=== PATIENT | male | born 2000 | race Caucasian/White ===

== ENCOUNTER 2020-04-05 01:21 | Emergency (ER) | payer MEDICAID, OTHER ==
[2020-04-05] MEDS ORDERED: Ketorolac Tromethamine 30 MG/ML VIAL ONE (02:21)
[2020-04-05] MEDS ORDERED: Ondansetron PF 4 MG/2 ML Vial ONE (02:21)
[2020-04-05 02:23] LABS: #Eosinphils 0.2 thou/uL (0.0-0.7); #Lymphocytes 2.2 thou/uL (1.20-3.40); #Monocytes 0.7 thou/uL (0.11-0.59); %Basophils 0.4 % (0.0-1.0); %Lymphocytes 23.9 % (28.0-48.0); %Monocytes 7.5 % (0.0-4.0); %Neutrophils 66.3 % (31.0-61.0); Hemoglobin 16.9 g/dL (14.0-18.0); Mean Corpuscular HGB CONC 34.2 g/dL (32.0-36.0); Mean Corpuscular Hemoglobin 30.6 pg (25.0-35.0); Mean Corpuscular Volume 89.5 fL (78.0-98.0); Mean Platelet Volume 9.1 fL (7.4-10.4); Platelet Count 164 thou/uL (130-400); RBC Distribution Width 12.5 % (11.5-14.5); Red Blood Cell (RBC) Count 5.53 mill/uL (4.00-5.20)
[2020-04-05 02:36] LABS: ALT (SGPT) 12 U/L (8-55); AST (SGOT) 12 U/L (10-45); Alkaline Phosphatase 51 U/L (50-130); Anion Gap 12 mmol/L (10-20); BUN (Urea Nitrogen) 15 mg/dL (8.4-21.0); Bilirubin, Total Less than 0.2 mg/dL (0.2-1.2); Calc. Creatinine Clearance 0 mL/min (70-130); Calcium 9.5 mg/dL (7.8-10.44); Carbon Dioxide 24 mmol/L (22-29); Chloride 110 mmol/L (98-107); Estimated GFR-MDRD Greater than 90; Globulin 2.2 g/dL (2.4-3.5); Glucose 109 mg/dL (70-105); Potassium 4.1 mmol/L (3.5-5.1); Protein, Total 6.2 g/dL (6.0-8.3); Sodium 142 mmol/L (136-145)
--- NOTE | 2020-04-05 07:19 | RAD ---
CHEST 1 VIEW: INDICATION: Difficulty breathing. COMPARISON: None. IMPRESSION: No acute cardiopulmonary abnormality. COMMENTS: The lungs are clear. Heart size is normal. No acute osseous abnormality is evident. POS: BH
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
[2020-04-05] MEDS ORDERED: Iopamidol-370 76% 500 ML 1 ML ONE (09:12)
== END 2020-04-05 03:26 ==
LOC: ERS 01:21
DX: S19.9XXA Unspecified injury of neck, initial encounter (principal); R06.00 Dyspnea, unspecified; F17.210 Nicotine dependence, cigarettes, uncomplicated; Y04.0XXA Assault by unarmed brawl or fight, initial encounter
CPT/HCPCS: 70491; 71045; 71275; 80053; 84484; 85025; 93005; 96374; 96375; J1885; J2405; Q9967